=== PATIENT | male | born 2005 | race Caucasian/White ===

== ENCOUNTER 2024-12-08 23:18 | Emergency (ER) | payer SELFPAY ==
[2024-12-08 23:31] VITALS: BP 135/93; PULSE 82; RESP 14; TEMP 36.2; O2SAT 100; BMI 20.3
--- NOTE | 2024-12-08 23:47 | PC.NURSE ---
Contacted taran Hodges with patients permission. She will be on her way from [facility].
[2024-12-09 00:07] VITALS: BP 122/82; PULSE 72; RESP 14; O2SAT 99
[2024-12-09 00:08] VITALS: BP 122/82; PULSE 66; O2SAT 99
[2024-12-09 00:30] VITALS: BP 115/67; PULSE 56; O2SAT 99
[2024-12-09 01:00] VITALS: BP 130/82; PULSE 75; O2SAT 98
--- NOTE | 2024-12-09 01:16 | ED.GENADULT ---
HPI - General Adult General Chief complaint: Toxicology Problem Stated [facility] Time Seen by Provider: 12/08/24 23:20 Source: patient, family and EMS Mode of arrival: EMS History of Present Illness HPI narrative: 19-year-old young young man no significant history, [place]. He and another friend decided to experiment with hallucinogenic mushrooms. Neither of them have ever tried these or hallucinogens previously. There was no narcotic, marijuana or alcohol involved. Both took a fairly seemingly large dose. [place], when they came back to the tent patient seemed to be less aware. His friend, who had also indulge in the mushrooms, became concerned. He helped his friend stand up, the friend then fell back into the tent landing on the with no injury but began having snoring respirations. The concern friend brought him to the ER for further evaluation. At the time of the evaluation he continues to sober it is approximately 6 hours after the initial ingestion. He is complaining of no pain. Pupils are still dramatically dilated but thought content is appropriate he is alert, asking appropriate questions, has brief lapses in memory over the course of the evening. Patient History Social History Smoking Status: Never smoker Smoking Status: Never smoker Exam Initial Vital Signs Initial Vital Signs: Vital Signs Temperature 97.1 F L 12/08/24 23:31 Pulse Rate 82 12/08/24 23:31 Respiratory Rate 14 12/08/24 23:31 Blood Pressure 135/93 H 12/08/24 23:31 Pulse Oximetry 100 12/08/24 23:31 Oxygen Delivery Method Room Air 12/08/24 23:31 General: Alert appropriate in no acute distress Head is atraumatic, pupils are very widely dilated Respiratory: Able to speak in full sentences, no obvious respiratory distress Skin: No obvious rashes, warm and dry Neurologic: Grossly intact no obvious asymmetries or abnormalities Psych: appropriate insight and affect, cooperative, normal thought process, no pressured speech, good eye contact Course Vital Signs Vital signs: Vital Signs - 8 hr 12/08/24 23:31 12/09/24 00:07 Temperature 97.1 F L Pulse Rate 82 72 Respiratory Rate 14 14 Blood Pressure 135/93 H 122/82 Pulse Oximetry 100 99 Oxygen Delivery Method Room Air Room Air Medical Decision Making [facility] Narrative Medical decision making narrative: 19-year-old young man with his 1st experience with mushrooms while on a camping trip at [facility]. It sounds like the dose that he took was quite large. He has small episodes of the evening that he does not remember, apparently stood up, fell back into the tent sustaining no injuries but fell immediately asleep with snoring which precipitated alarm in his friend. Upon arrival in the emergency room he is almost back to his baseline, there is no obvious trauma, pupils remain dilated, he is alert, appropriate and cognitively aware. Discussed probable excessive dosing with his initial introduction to hallucinogenic mushrooms. The overall experience is now wearing off but has not been completely pleasant. Suggested that he avoid psychoactive recreational experimentation in the future. His parents have been called and will come make sure that he gets safely home. He is safe for discharge Discharge Plan Departure Patient Disposition: Home Clinical Impression: Adverse drug reaction Qualifiers: Encounter type: initial encounter Qualified Code(s): T50.905A - Adverse effect of unspecified drugs, medicaments and biological substances, initial encounter Activity Restrictions/Additional Instructions: Thank you for coming in today I am sorry that your 1st experience with mushrooms has been so negative. I suspect that the dose she took was probably higher than you should have which explains some of the adverse effects, the brief memory lapses and the deeply snoring respirations that concerned her friends. At this point you are sobering appropriately, on physical exam I am not concerned with any trauma or other abnormalities. There was no indication for blood work or hospitalization. I would recommend that you avoid hallucinogenic experiences in the future. If you find that you are getting worse or develop any new symptoms, please feel free to return to the emergency department for further evaluation. Stand Alone Forms: Patient Portal/API/Survey
[2024-12-09 01:30] VITALS: BP 131/59; PULSE 55; O2SAT 100
[2024-12-09 02:00] VITALS: BP 117/62; PULSE 54; RESP 14; O2SAT 99
== END 2024-12-09 02:24 | disposition home or self-care (01) ==
PROVIDERS: Emergency Provider Emergency Medicine
DX: T62.0X1A Toxic effect of ingested mushrooms, accidental (unintentional), initial encounter (principal)
CPT/HCPCS: 99282; 99283